=== PATIENT | female | born 1990 | race Caucasian/White ===

== ENCOUNTER 2020-12-28 23:10 | Outpatient (CLI) ==
[~2020-12-28] VITALS: Ht 162.6 cm; Wt 86.8 kg
[2020-12-28 23:28] VITALS: BP 129/73
[2020-12-28] MEDS ORDERED: TUMS500C PO (23:43)
[2020-12-28] MEDS ORDERED: PRENTAB9 PO (23:43)
[2020-12-28] MEDS ORDERED: ACET-897 PO (23:43)
--- NOTE | 2020-12-29 00:15 | IPNPDOC ---
Text Note Date of Service The patient was seen on 12/29/20. NOTE Outpatient 30yo KAYLYNN 04/28/2021. Presents @ 22w3d with complaints of bleeding following intercourse. Pt is visiting here from [place]. History significant for previous 2nd trimester loss. Has abdominal cerclage in place. Reports good movement and mild cramping Reassuring status Spec exam scant pink creamy discharge, no active bleeding noted. Cervix visually LTC. SVE LTC, OOP. Sono ordered. VS,Fishbone, I+O VS, Fishbone, I+O Vital Signs Date Time Temp Pulse Resp B/P (MAP) Pulse Ox O2 Delivery O2 Flow Rate FiO2 12/28/20 23:28 98.2 104 18 129/73 (91) Anny Coles CNM December 29, 2020 00:15
--- NOTE | 2020-12-29 01:36 | REPVR ---
PROCEDURE INFORMATION: Exam: US , Limited Exam date and time: 12/29/2020 12:21 AM Age: 30 years old Clinical indication: Lmp or gestational age (in weeks): 22 weeks 6 miguel angel; Other: Vaginal bleeding; ; Prior surgery; Surgery date: 6+ months; Surgery type: Ta cerclage placement; Additional info: 22wks bleeding, abdominal cerclage TECHNIQUE: Imaging protocol: Real-time ultrasound of the maternal uterus with image documentation. Exam focused on the clinical indication. COMPARISON: No relevant prior studies available. FINDINGS: Last menstrual period: 07/22/2020 Gestation: There is a single live intrauterine gestation. presentation: Cephalic heart rate: 139 bpm Placenta: Anterior. Grade 1. No placenta previa seen. Amniotic fluid: Within normal limits. MATERNAL: Cervix: The cervix is closed and measures 3.6 cm in length. There is echogenic shadowing around the cervix, which is likely related to a cervical cerclage. IMPRESSION: 1. Single live intrauterine in cephalic presentation. 2. Closed cervix with a cerclage in place. Electronically signed by: Sunil Lamar On 12/29/2020 01:36:31 AM
--- NOTE | 2020-12-29 02:07 | IPNPDOC ---
Text Note Date of Service The patient was seen on 12/29/20. NOTE Outpatient status continue to be reassuring via monitor No UC No further bleeding Sono shows cervix closed, 3.6cm in length. No evidence previa. Cerclage appears to be in place Discharged home. Routine precautions. Keep next appt VS,Fishbone, I+O VS, Fishbone, I+O Vital Signs Date Time Temp Pulse Resp B/P (MAP) Pulse Ox O2 Delivery O2 Flow Rate FiO2 12/28/20 23:28 98.2 104 18 129/73 (91) Anny Coles CNM December 29, 2020 02:07
== END 2020-12-29 02:12 | disposition home or self-care (01) ==
LOC: M LDO 23:10
PROVIDERS: ATTEND Advanced Practice Midwife
DX: O26.892 Other specified pregnancy related conditions, second trimester (principal); N89.8 Other specified noninflammatory disorders of vagina; Z87.59 Personal history of other complications of pregnancy, childbirth and the puerperium; Z88.0 Allergy status to penicillin
CPT/HCPCS: 76815; 76817; G0378; G0463

== ENCOUNTER 2025-03-21 22:21 | Outpatient (CLI) | payer OTHER ==
[~2025-03-21] VITALS: Ht 162.6 cm; Wt 99.0 kg
[~2025-03-21 22:21] MED LIST: ACET-897 PO; PRENTAB9 PO; TUMS500C PO
[2025-03-21 22:36] VITALS: BP 106/64; O2SAT 97
[2025-03-21] MEDS ORDERED: PEPC1TAB5 PO (22:42)
[2025-03-21] MEDS ORDERED: LEXA1TAB2 PO (22:42)
[2025-03-21] MEDS ORDERED: INDO-16 PO (22:45)
[2025-03-21] MEDS ORDERED: INSU100I24 SQ (22:45)
[2025-03-21] MEDS ORDERED: LANTINJ4 SC (22:45)
[2025-03-21] MEDS ORDERED: HOME MED LIST COMPLETE! XX SCH (22:50)
[2025-03-22 00:14] VITALS: BP 104/59
== END 2025-03-22 00:19 | disposition home or self-care (01) ==
LOC: M LDO 22:21
PROVIDERS: ATTEND Specialist
DX: O26.893 Other specified pregnancy related conditions, third trimester (principal); R10.2 Pelvic and perineal pain; Z3A.31 31 weeks gestation of pregnancy; Z88.0 Allergy status to penicillin
CPT/HCPCS: 59025; G0463